=== PATIENT | male | born 1930 | race Caucasian/White ===

== ENCOUNTER 2020-01-26 09:18 | Observation (INO) ==
[2020-01-26] MEDS ORDERED: Pantoprazole 40 MG VIAL IVP ONE (09:45)
[2020-01-26] MEDS ORDERED: Isovue-370 500 ML BOTTLE IVP ONE (09:45)
[2020-01-26 10:12] LABS: Basophils % 0.7 %; Eosinophils # 0.1 K/mcL (0.0-0.6); Eosinophils % 2.2 %; Hemoglobin 10.9 g/dL (12.9-16.9); Immature Granulocytes % 0.2 % (0-4); Lymphocytes # 1.1 K/mcL (0.6-4.6); Lymphocytes % 18.7 %; Mean Corpuscular HGB Conc 34.1 g/dL (31.6-35.5); Mean Corpuscular Hemoglobin 34.5 pg (28.0-33.3); Mean Corpuscular Volume 101.3 fL (83.0-100.0); Mean Platelet Volume 11.9 fL (9.4-12.4); Monocytes # 0.4 K/mcL (0.0-1.3); Monocytes % 6.7 %; Neutrophils # 4.2 K/mcL (1.6-8.9); Platelet Count 141 K/mcL (140-400); Red Blood Count 3.16 M/mcL (4.19-5.50); Red Cell Distribution Width 12.2 % (11.5-14.5); Segmented Neutrophils % 71.5 %; White Blood Count 5.8 K/mcL (4.3-11.1)
[2020-01-26 10:15] LABS: INR 1.8; Prothrombin Time 20.7 Seconds (9.4-12.1)
[2020-01-26 10:18] LABS: Activated Partial Thrombo Time 35.9 Seconds (26.0-36.0)
[2020-01-26 10:33] LABS: Alanine Aminotransferase 21 Units/L (7-52); Albumin 3.9 g/dL (3.5-5.7); Albumin/Globulin Ratio 1.6 (1.1-2.2); Alkaline Phosphatase 90 Units/L (34-104); Aspartate Amino Transferase 21 Units/L (13-39); BUN/Creatinine Ratio 25 (6-26); Bilirubin,Total 1.6 mg/dL (0.3-1.0); Blood Urea Nitrogen 25 mg/dL (8-23); Calcium 9.4 mg/dL (8.6-10.3); Carbon Dioxide 26 mEq/L (23-29); Chloride 106 mEq/L (98-107); Globulin 2.4 g/dL (2.4-3.5); Glucose 238 mg/dL (70-105); Osmolality,Calculated 300 (280-300); Potassium 4.5 mEq/L (3.5-5.1); Sodium 139 mEq/L (136-145); Total Protein 6.3 g/dL (6.4-8.9); eGFR For African Americans > 60 (> 60); eGFR For Non-African Americans > 60 (> 60)
[2020-01-26] MEDS ORDERED: 0.9 % Sodium Chloride 1,000 ML IV ONE (11:41)
[2020-01-26] MEDS ORDERED: Naloxone 0.4 MG/ML INJ IVP PRN (13:10)
[2020-01-26] MEDS ORDERED: Ondansetron 4 MG/2 ML VIAL IVP PRN (13:15)
[2020-01-26] MEDS ORDERED: Baclofen 10 MG TABLET PO PRN (13:42)
[2020-01-26] MEDS: Ringers Solution, Lactated 1,000 ML IVC SCH (14:48)
[2020-01-26] MEDS ORDERED: *HR* Dextrose 50 % in Water (Vial) 50 ML VIAL IVP PRN (15:46)
[2020-01-26] MEDS ORDERED: Dextrose Gel 15 GM/37.5 ML TUBE PO PRN ×2 (15:46)
[2020-01-26] MEDS ORDERED: D5% in Water 1,000 ML IVC PRN (15:46)
[2020-01-26 16:17] LABS: Hematocrit 28.5 % (37.5-50.1); Hemoglobin 9.7 g/dL (12.9-16.9)
[2020-01-26] MEDS ORDERED: SODIUM CHLORIDE/NAHCO3/KCL/PEG 4,000 ML SOLN.RECON PO ONE (17:00)
[2020-01-26] MEDS: Insulin LISPRO 300 UNITS/3 ML VIAL SQ SCH ×2 (17:06→19:38)
[2020-01-26] MEDS: Pantoprazole 40 MG VIAL IVP SCH (17:06)
[2020-01-26] MEDS: Metoprolol XL (24 HR) Succ 50 MG TAB.ER.24H PO SCH (19:54)
[2020-01-26 22:40] LABS: Hematocrit 27.4 % (37.5-50.1); Hemoglobin 9.2 g/dL (12.9-16.9)
[2020-01-27] MEDS: Ringers Solution, Lactated 1,000 ML IVC SCH (00:03)
[2020-01-27] MEDS: Pantoprazole 40 MG VIAL IVP SCH ×2 (05:02→18:08)
[2020-01-27 05:43] LABS: Basophils % 0.5 %; Eosinophils # 0.2 K/mcL (0.0-0.6); Eosinophils % 3.1 %; Hematocrit 27.6 % (37.5-50.1); Hemoglobin 9.6 g/dL (12.9-16.9); Immature Granulocytes % 0.2 % (0-4); Immature Platelets 8.6 % (1.1-6.1); Lymphocytes # 1.8 K/mcL (0.6-4.6); Lymphocytes % 31.8 %; Mean Corpuscular HGB Conc 34.8 g/dL (31.6-35.5); Mean Corpuscular Hemoglobin 34.9 pg (28.0-33.3); Mean Corpuscular Volume 100.4 fL (83.0-100.0); Mean Platelet Volume 11.7 fL (9.4-12.4); Monocytes # 0.5 K/mcL (0.0-1.3); Monocytes % 8.9 %; Neutrophils # 3.1 K/mcL (1.6-8.9); Platelet Count 121 K/mcL (140-400); Red Blood Count 2.75 M/mcL (4.19-5.50); Red Cell Distribution Width 12.3 % (11.5-14.5); Segmented Neutrophils % 55.5 %; White Blood Count 5.5 K/mcL (4.3-11.1)
[2020-01-27 05:57] LABS: BUN/Creatinine Ratio 26 (6-26); Blood Urea Nitrogen 18 mg/dL (8-23); Calcium 8.6 mg/dL (8.6-10.3); Carbon Dioxide 24 mEq/L (23-29); Chloride 110 mEq/L (98-107); Glucose 109 mg/dL (70-105); Osmolality,Calculated 290 (280-300); Potassium 3.8 mEq/L (3.5-5.1); Sodium 139 mEq/L (136-145); eGFR For African Americans > 60 (> 60); eGFR For Non-African Americans > 60 (> 60)
[2020-01-27 05:58] LABS: % Iron Saturation 31 % (20-55); Iron 82 mcg/dL (65-175); Transferrin 188 mg/dL (203-362)
[2020-01-27 06:15] LABS: Ferritin 100 ng/mL (20-250)
[2020-01-27 06:23] LABS: Folate > 22.3 ng/mL (3.0-16.0); Vitamin B12 663 pg/mL (250-1100)
[2020-01-27] MEDS: Metoprolol XL (24 HR) Succ 50 MG TAB.ER.24H PO SCH ×2 (08:06→19:38)
[2020-01-27] MEDS: Finasteride 5 MG TABLET PO SCH (08:06)
[2020-01-27] MEDS: Insulin LISPRO 300 UNITS/3 ML VIAL SQ SCH ×4 (08:06→19:49)
[2020-01-27] MEDS: Multivit/Ca/Min/Fe/FA 1 TAB TABLET PO SCH (08:06)
[2020-01-27] MEDS ORDERED: Lidocaine -MPF 2% 2 ML VIAL ONE (10:32)
[2020-01-28 02:38] LABS: Basophils # 0.1 K/mcL (0.0-0.2); Basophils % 0.7 %; Eosinophils # 0.2 K/mcL (0.0-0.6); Eosinophils % 2.2 %; Hematocrit 26.5 % (37.5-50.1); Hemoglobin 9.3 g/dL (12.9-16.9); Immature Granulocytes % 0.3 % (0-4); Lymphocytes # 1.8 K/mcL (0.6-4.6); Lymphocytes % 26.1 %; Mean Corpuscular HGB Conc 35.1 g/dL (31.6-35.5); Mean Corpuscular Hemoglobin 34.4 pg (28.0-33.3); Mean Corpuscular Volume 98.1 fL (83.0-100.0); Mean Platelet Volume 11.6 fL (9.4-12.4); Monocytes # 0.6 K/mcL (0.0-1.3); Monocytes % 9.2 %; Neutrophils # 4.3 K/mcL (1.6-8.9); Platelet Count 118 K/mcL (140-400); Red Cell Distribution Width 12.4 % (11.5-14.5); Segmented Neutrophils % 61.5 %; White Blood Count 6.9 K/mcL (4.3-11.1)
[2020-01-28 02:57] LABS: BUN/Creatinine Ratio 21 (6-26); Blood Urea Nitrogen 17 mg/dL (8-23); Calcium 8.8 mg/dL (8.6-10.3); Carbon Dioxide 25 mEq/L (23-29); Chloride 110 mEq/L (98-107); Glucose 105 mg/dL (70-105); Magnesium 1.7 mg/dL (1.6-2.6); Osmolality,Calculated 292 (280-300); Potassium 3.9 mEq/L (3.5-5.1); Sodium 140 mEq/L (136-145); eGFR For African Americans > 60 (> 60); eGFR For Non-African Americans > 60 (> 60)
[2020-01-28] MEDS: Pantoprazole 40 MG VIAL IVP SCH (05:01)
[2020-01-28 07:12] VITALS: BP 144/79
[2020-01-28] MEDS: Insulin LISPRO 300 UNITS/3 ML VIAL SQ SCH (08:22)
[2020-01-28] MEDS ORDERED: Apixaban 5 MG TABLET PO SCH (09:00)
[2020-01-28] MEDS ORDERED: Aspirin Enteric Coated 81 MG Tablet PO SCH (09:00)
[2020-01-28] MEDS: Multivit/Ca/Min/Fe/FA 1 TAB TABLET PO SCH (10:05)
[2020-01-28] MEDS: Finasteride 5 MG TABLET PO SCH (10:05)
[2020-01-28] MEDS: Metoprolol XL (24 HR) Succ 50 MG TAB.ER.24H PO SCH (10:05)
== END 2020-01-28 11:22 | disposition home health service (06) ==
LOC: 3BNU 09:18 → EMEROOARM 09:18 → SUATTDRO 13:10 → 3BNU 13:56
PROVIDERS: ADMIT Internal Medicine; ATTEND Internal Medicine
PROC: ENDOEBX (2020-01-27 13:00)